=== PATIENT | male | born 1955 | race Hispanic/Latino ===

== ENCOUNTER → 2025-04-05 | Outpatient (CLI) | payer OTHER ==
--- NOTE | 2025-04-05 14:12 | HMCIMG ---
CLINICAL INFORMATION Lump on thumb COMPARISON None. TECHNIQUE Multiplanar multisequence MR imaging of the right hand without contrast FINDINGS Bones: Within normal limits. Intercarpal joints: Mild osteoarthritis, most affecting the first carpometacarpal articulation. No erosions are, effusion or synovitis. Metacarpophalangeal joints: No erosions, synovitis, or joint effusions. Interphalangeal joints: No erosions, synovitis, or joint effusions. Tendons: No evidence for tendon tear or tenosynovitis. Muscles: Within normal limits. Other: At the palmar aspect of the thumb distal phalanx, there is a circumscribed T2 hyperintense mass which measures 1.2 x 1.0 x 1.4 cm. A single thin internal septation is present. No soft tissue edema. IMPRESSION 1.4 cm cystic mass at the palmar aspect of the thumb distal phalanx, most likely representing a synovial cyst. However recommend postcontrast imaging to exclude solid mass. Mild osteoarthritis of the intercarpal joints, most affecting the first carpometacarpal articulation. /Wren
== END | disposition home or self-care (01) ==
LOC: RAH 12:50
PROVIDERS: ATTEND Student in an Organized Health Care Education/Training Program
DX: M19.042 Primary osteoarthritis, left hand (principal); R22.32 Localized swelling, mass and lump, left upper limb
CPT/HCPCS: 73218